=== PATIENT | male | born 1965 ===

== ENCOUNTER 2017-10-30 13:20 | Emergency (ER) | payer SELFPAY ==
[2017-10-30 15:30] VITALS: BP 149/87
--- NOTE | 2017-10-30 15:36 | UC ---
Lower Extremity/Ankle HPI - HPI Summary HPI Summary: pt accidently struck in left laura by a cinder block on sunday. he noted an abrasion, bruising and some swelling. the swelling/bruising now goes into his ankle. no calf pain or fever and no numb or weakness. tetanus is not known. pt has NIDDM but states BS's are good. - History of Current Complaint Stated Complaint: WC/LEFT LEG INJURY Time Seen by Provider: 10/30/17 15:27 Hx Obtained From: Patient Aggravating Factor(s): Standing Alleviating Factor(s): Nothing Able to Bear Weight: Yes Related History: Occupational Injury - Risk Factors DVT Risk Factors: Negative Septic Arthritis Risk Factor: Negative - Allergies/Home Medications Allergies/Adverse Reactions: Allergies Allergy/AdvReac Type Severity Reaction Status Date / Time No Known Allergies Allergy Verified 10/30/17 15:30 Home Medications: Home Medications Aspirin 81 mg CHEW TAB* [Aspirin Low Dose TAB*] 81 mg PO DAILY 10/30/17 [ History Confirmed 10/30/17] Carvedilol TAB* [Coreg TAB*] 20 mg PO DAILY 10/30/17 [History Confirmed 10/30/17 ] Cholecalciferol TAB* [Vitamin D TAB*] 2,000 units PO DAILY 10/30/17 [History Confirmed 10/30/17] Dapagliflozin Propanediol [Farxiga] 5 mg PO DAILY 10/30/17 [History Confirmed ] Enalapril TAB* [Vasotec TAB*] 20 mg PO DAILY 10/30/17 [History Confirmed ] Rosuvastatin Calcium 10 mg PO DAILY 10/30/17 [History Confirmed 10/30/17] Sitaglip/[id number]/1000(NR) [Janumet XR 100/1000 (NF)] 1 tab PO DAILY [History Confirmed 10/30/17] raNITIdine HCl [Ranitidine HCl] 300 mg PO DAILY 10/30/17 [History Confirmed 07/19] tiZANidine TAB* [Zanaflex TAB*] 4 mg PO DAILY 10/30/17 [History Confirmed ] PMH/Surg Hx/FS Hx/Imm Hx Endocrine History: Diabetes Cardiovascular History: Hypertension - Family History Known Family History: Positive: None Family History: healthy - Social History Occupation: Employed Full-time Lives: With Family Alcohol Use: Rare Substance Use Type: None Smoking Status (MU): Never Smoked Tobacco - Immunization History Hx Tetanus, Diphtheria Vaccination: No Review of Systems Constitutional: Negative Skin: Negative Eyes: Negative ENT: Negative Respiratory: Negative Cardiovascular: Negative Gastrointestinal: Negative Genitourinary: Negative Motor: Negative Neurovascular: Negative Musculoskeletal: Other: - abrasion with swelling/bruising LLE Neurological: Negative Psychological: Negative All Other Systems Reviewed And Are Negative: Yes Physical Exam Triage Information Reviewed: Yes Appearance: Well-Appearing Vital Signs Reviewed: Yes Eyes: Positive: Conjunctiva Clear ENT: Positive: Normal ENT inspection Neck: Positive: Supple, Nontender, No Lymphadenopathy Respiratory: Positive: Lungs clear, Normal breath sounds Cardiovascular: Positive: RRR, No Murmur Abdomen Description: Positive: Nontender, No Organomegaly, Soft Bowel Sounds: Positive: Present Musculoskeletal: Positive: Other: - LLE: hip, knee, achilles are atraumatic. mid laura with healing abrasion, mild swelling and bruising, the area is tender but not warm or red. the bruises and swelling extends into ankle on medial side. s/v/m to LLE is intact. Neurological: Positive: Alert Psychological: Positive: Age Appropriate Behavior Skin Exam: Normal Diagnostics - Radiology No standard instances Xray Interpretation: No Acute Changes Radiology Interpretation Completed By: Radiologist Lower Extremity Course/Dx - Course Course Of Treatment: no concern for infection or FB. no fx. c/w healing abrasion and hematoma. no osteomyelitis or compartment syndrom. - Differential Dx/Diagnosis Provider Diagnoses: Healing abrasion L laura. Hematoma L lower leg. Discharge - Sign-Out/Discharge Documenting (check all that apply): Discharge/Admit/Transfer - Discharge Plan Condition: Stable Disposition: HOME Patient Education Materials: Hematoma (ED), Abrasion (ED) Referrals: Reddy Rodriguez MD [Primary Care Provider] - 3 Days - Billing Disposition and Condition Condition: STABLE Disposition: HOME
[2017-10-30] MEDS ORDERED: Tetan/Diph/Pertus SYR(Tdap)* 0.5 ML SYR(BOOSTRIX) use SYR IM ONE (15:37)
--- NOTE | 2017-10-30 15:51 | RAD ---
HISTORY: Left leg subacute trauma, COMPARISONS: None VIEWS: 2, Frontal and lateral views of the left foreleg FINDINGS: BONE DENSITY: Normal. BONES: There is no displaced fracture. JOINTS: There is no arthropathy. ALIGNMENT: There is no dislocation. SOFT TISSUES: Unremarkable. OTHER FINDINGS: None. IMPRESSION: NO ACUTE OSSEOUS INJURY. IF SYMPTOMS PERSIST, RECOMMEND REPEAT IMAGING.
== END 2017-10-30 16:19 | disposition home or self-care (01) ==
LOC: UCCORT 13:20
DX: S80.812A Abrasion, left lower leg, initial encounter (principal); W22.8XXA Striking against or struck by other objects, initial encounter; Y93.9 Activity, unspecified; Y92.9 Unspecified place or not applicable; E11.9 Type 2 diabetes mellitus without complications; I10 Essential (primary) hypertension
CPT/HCPCS: 90471; 90715; 99201; G0463